=== PATIENT | male | born 1945 | race Caucasian/White ===

== ENCOUNTER → 2016-09-10 | Outpatient (REF) ==
[~2016-09-10] MED LIST: ATIVAN 2MG/ML2 MG/ML IV; BENADRYL 50M50 MG/ML IV; DEPO-TESTOS200 MG/M1 IM; DULCOLAX S10 MG/SUPP RC; FLOMAX 0.40.4 MG/CAP PO; GENTLE LAXATIVE10 MG RC; KETOROLAC30 MG/ML IV; KLOR-CON M2020 MEQ PO; LASIX 40MG TABL40 MG PO; LASIX 40MG40 MG/4 ML IV; LEVAQUIN 750MG750 M1 PO; LIORESAL 1010 MG/TAB PO; MULTIPLE VITAMI1 CAP PO; PERCOCET 325 MG1 TA3 PO; PRILOSEC 20MG20 MG PO; PRINZIDE 12.5 M1 TAB PO; PROTONIX I40 MG/VIAL IV; SENOKOT S 50 MG1 TAB PO; VITAMINC1000TA PO
== END ==
LOC: ZLAB.WCH 20:34
DX: Z01.89 Encounter for other specified special examinations (principal)

== ENCOUNTER → 2016-09-11 | Outpatient (REF) | LOC: ZLAB.WCH 10:14 | DX: Z01.89 Encounter for other specified special examinations (principal) | CPT/HCPCS: G0103 ==

== ENCOUNTER → 2016-09-19 | Outpatient (CLI) | payer MEDICARE, BC ==
[2016-09-19 15:29] LABS: BASO # 0.1 (0.0-0.2); BASO % 0.5 % (0.0-2.0); EOS # 0.4 (0.0-0.7); EOS % 3.9 % (0-4.0); GRAN # 7.3 (1.4-6.5); GRAN % 72.5 % (42.2-75.2); HEMATOCRIT 48.2 % (42.0-52.0); HEMOGLOBIN 16.4 g/dl (13.5-18.0); LYMPH # 1.4 (1.2-3.4); LYMPH % 13.7 % (20.0-51.0); MEAN CELL VOLUME 85 fl (80.0-100.0); MEAN CORPUSCULAR HEMOGLOBIN 29 pg (27.0-31.0); MEAN CORPUSCULAR HGB CONC 34 g/dl (33.0-37.0); MEAN PLATELET VOLUME 10.1 fl (7.4-10.4); MONO # 0.9 (0.1-0.6); MONO % 8.4 % (1.7-9.3); PLATELET COUNT 305 K/mm3 (130-400); RED BLOOD COUNT 5.67 M/mm3 (4.20-5.60); REDCELL DISTRIBUTION WIDTH-CV 13.5 % (11.5-14.5); WHITE BLOOD COUNT 10.1 K/mm3 (4.8-10.8)
== END ==
LOC: COL.LAB 15:03
PROVIDERS: Orthopaedic Surgery Sports Medicine
DX: Z96.652 Presence of left artificial knee joint (principal)

== ENCOUNTER → 2016-09-20 | Outpatient (REF) | LOC: ZLAB.WCH 18:11 | DX: Z01.89 Encounter for other specified special examinations (principal) ==

== ENCOUNTER 2016-10-15 19:55 | Inpatient (IN) | payer MEDICARE, BC ==
[~2016-10-15] VITALS: Ht 180.3 cm; Wt 113.7 kg
[2016-10-15 21:07] VITALS: BP 133/64; PULSE 94; TEMP 99.7
[2016-10-15] MEDS ORDERED: FLOMAX 0.40.4 MG/CAP PO (21:23)
[2016-10-15] MEDS ORDERED: PRINZIDE 12.5 M1 TAB PO (21:24)
[2016-10-15] MEDS ORDERED: LASIX 40MG TABL40 MG PO (21:24)
[2016-10-15] MEDS ORDERED: MULTIPLE VITAMI1 CAP PO (21:25)
[2016-10-15] MEDS ORDERED: VITAMINC1000TA PO (21:25)
[2016-10-15] MEDS ORDERED: DEPO-TESTOS200 MG/M1 IM (21:26)
[2016-10-15] MEDS ORDERED: PRILOSEC 20MG20 MG PO (21:27)
[2016-10-16 02:25] VITALS: BP 123/64; PULSE 93; TEMP 98.1
[2016-10-16 06:09] VITALS: BP 131/66; PULSE 87; TEMP 98.5
[2016-10-16 07:01] LABS: HEMATOCRIT 41.7 % (42.0-52.0); HEMOGLOBIN 14.3 g/dl (13.5-18.0); MEAN CELL VOLUME 86 fl (80.0-100.0); MEAN CORPUSCULAR HEMOGLOBIN 29 pg (27.0-31.0); MEAN CORPUSCULAR HGB CONC 34 g/dl (33.0-37.0); MEAN PLATELET VOLUME 10.9 fl (7.4-10.4); PLATELET COUNT 185 K/mm3 (130-400); RED BLOOD COUNT 4.88 M/mm3 (4.20-5.60)
[2016-10-16 07:09] LABS: WHITE BLOOD COUNT 22.5 K/mm3 (4.8-10.8)
[2016-10-16 07:10] LABS: ADD PATHOLOGY DIFF REVIEW NO
[2016-10-16 07:19] LABS: ADJUSTED CALCIUM 8.8 mg/dL (8.4-10.2); ALBUMIN 3.1 gm/dL (3.5-5.0); BILIRUBIN,TOTAL 1.1 mg/dL (0.0-1.0); CALCIUM 8.1 mg/dL (8.4-10.2); CREATININE, serum 0.8 mg/dL (0.66-1.25); POTASSIUM 3.3 mmol/L (3.4-5.0)
[2016-10-16 07:37] LABS: ALBUMIN 3.4 gm/dL (3.5-5.0); BILIRUBIN,TOTAL 1.2 mg/dL (0.0-1.0); TOTAL PROTEIN 6.2 gm/dL (6.4-8.2)
[2016-10-16 07:48] LABS: BILIRUBIN,DIRECT 0.5 mg/dL (0.0-0.4)
[2016-10-16 09:09] LABS: BAND 20 % (0-10); NEUTROPHILS 71 % (42.0-75.2); PLATELET ESTIMATE NORMAL (NORMAL); TOTAL CELLS COUNTED 100
[2016-10-16 09:12] VITALS: BP 132/61; PULSE 92; TEMP 98.1
[2016-10-16 13:51] VITALS: BP 146/67; PULSE 96; TEMP 98.5
[2016-10-16 14:05] LABS: PH 6 (5-8); SQUAMOUS EPITHELIAL None Seen /hpf; URINE APPEARANCE Hazy; URINE BACTERIA None Seen /hpf; URINE BILIRUBIN Negative (NEGATIVE); URINE BLOOD Negative (NEGATIVE); URINE COLOR Yellow; URINE GLUCOSE Negative (NEGATIVE); URINE KETONE 1+ (NEGATIVE); URINE WBC 0-2 /hpf
[2016-10-16 17:47] VITALS: BP 110/48; PULSE 97; TEMP 98.9
[2016-10-16 21:39] VITALS: BP 140/60; PULSE 106; TEMP 98.2
[2016-10-17 01:30] VITALS: BP 123/55; PULSE 95; TEMP 98
[2016-10-17 06:08] VITALS: BP 132/64; PULSE 104; TEMP 100.3
[2016-10-17 06:42] LABS: HEMATOCRIT 41.7 % (42.0-52.0); MEAN CELL VOLUME 87 fl (80.0-100.0); MEAN CORPUSCULAR HEMOGLOBIN 29 pg (27.0-31.0); MEAN CORPUSCULAR HGB CONC 34 g/dl (33.0-37.0); MEAN PLATELET VOLUME 10.7 fl (7.4-10.4); PLATELET COUNT 178 K/mm3 (130-400)
[2016-10-17 07:02] LABS: WHITE BLOOD COUNT 25.4 K/mm3 (4.8-10.8)
[2016-10-17 07:03] LABS: ADD PATHOLOGY DIFF REVIEW NO
[2016-10-17 07:46] LABS: BAND 22 % (0-10); NEUTROPHILS 67 % (42.0-75.2); TOTAL CELLS COUNTED 100
[2016-10-17 07:52] LABS: PLATELET ESTIMATE NORMAL (NORMAL)
[2016-10-17 09:23] VITALS: BP 125/60; PULSE 87; TEMP 97.6
[2016-10-17 10:03] LABS: CALCIUM 8.2 mg/dL (8.4-10.2); CREATININE, serum 0.87 mg/dL (0.66-1.25); POTASSIUM 3.6 mmol/L (3.4-5.0)
[2016-10-17 13:51] VITALS: BP 121/53; PULSE 85
[2016-10-17 18:03] VITALS: BP 112/51; PULSE 86
[2016-10-17 21:28] VITALS: BP 119/59; PULSE 72; TEMP 98.5
[2016-10-18 01:49] VITALS: BP 134/60; PULSE 77; TEMP 98.5
[2016-10-18 06:30] VITALS: BP 118/61; PULSE 72; TEMP 97.4
[2016-10-18 06:51] LABS: HEMATOCRIT 37.7 % (42.0-52.0); HEMOGLOBIN 12.7 g/dl (13.5-18.0); MEAN CELL VOLUME 87 fl (80.0-100.0); MEAN CORPUSCULAR HEMOGLOBIN 29 pg (27.0-31.0); MEAN CORPUSCULAR HGB CONC 34 g/dl (33.0-37.0); MEAN PLATELET VOLUME 11.7 fl (7.4-10.4); PLATELET COUNT 180 K/mm3 (130-400); RED BLOOD COUNT 4.33 M/mm3 (4.20-5.60); REDCELL DISTRIBUTION WIDTH-CV 13.7 % (11.5-14.5); WHITE BLOOD COUNT 19.5 K/mm3 (4.8-10.8)
[2016-10-18 07:43] LABS: CREATININE, serum 0.7 mg/dL (0.66-1.25)
[2016-10-18 10:00] VITALS: BP 119/66; PULSE 66; TEMP 98.9
[2016-10-18 13:05] VITALS: BP 125/60; PULSE 70; TEMP 97.9
[2016-10-18 16:55] VITALS: BP 116/56; PULSE 85; TEMP 97.9
[2016-10-18 21:13] VITALS: BP 132/66; PULSE 81; TEMP 97.3
[2016-10-19 02:42] VITALS: BP 129/68; PULSE 84; TEMP 97.5
[2016-10-19 05:50] VITALS: BP 124/57; PULSE 70; TEMP 98.5
[2016-10-19 10:13] VITALS: BP 127/70; PULSE 63; TEMP 97.9
[2016-10-19 13:25] VITALS: BP 124/60; PULSE 56; TEMP 97.8
[2016-10-19 13:44] LABS: BASO % 0.2 % (0.0-2.0); EOS # 0.4 (0.0-0.7); EOS % 3.3 % (0-4.0); GRAN % 80.9 % (42.2-75.2); HEMOGLOBIN 12.3 g/dl (13.5-18.0); LYMPH # 0.8 (1.2-3.4); LYMPH % 6.7 % (20.0-51.0); MEAN CELL VOLUME 86 fl (80.0-100.0); MEAN CORPUSCULAR HEMOGLOBIN 29 pg (27.0-31.0); MEAN CORPUSCULAR HGB CONC 34 g/dl (33.0-37.0); MONO % 7.9 % (1.7-9.3); PLATELET COUNT 209 K/mm3 (130-400); RED BLOOD COUNT 4.24 M/mm3 (4.20-5.60); REDCELL DISTRIBUTION WIDTH-CV 13.9 % (11.5-14.5); WHITE BLOOD COUNT 12.4 K/mm3 (4.8-10.8)
[2016-10-19 13:45] LABS: HEMATOCRIT 36.5 % (42.0-52.0)
[2016-10-19 13:55] LABS: CREATININE, serum 0.62 mg/dL (0.66-1.25); POTASSIUM 3.7 mmol/L (3.4-5.0)
[2016-10-19 17:33] VITALS: BP 134/65; PULSE 64; TEMP 98.9
[2016-10-19 21:45] VITALS: BP 147/73; PULSE 71; TEMP 98.3
[2016-10-20 02:18] VITALS: BP 164/81; PULSE 65; TEMP 99.2
[2016-10-20 04:18] VITALS: BP 143/71; PULSE 77; TEMP 98.9
[2016-10-20 07:06] LABS: HEMATOCRIT 35.2 % (42.0-52.0); HEMOGLOBIN 11.7 g/dl (13.5-18.0); MEAN CELL VOLUME 86 fl (80.0-100.0); MEAN CORPUSCULAR HEMOGLOBIN 29 pg (27.0-31.0); MEAN CORPUSCULAR HGB CONC 33 g/dl (33.0-37.0); MEAN PLATELET VOLUME 11.5 fl (7.4-10.4); PLATELET COUNT 217 K/mm3 (130-400); RED BLOOD COUNT 4.08 M/mm3 (4.20-5.60); REDCELL DISTRIBUTION WIDTH-CV 13.9 % (11.5-14.5); WHITE BLOOD COUNT 11.5 K/mm3 (4.8-10.8)
[2016-10-20 07:07] LABS: ADD PATHOLOGY DIFF REVIEW NO
[2016-10-20 07:25] LABS: ALBUMIN 2.6 gm/dL (3.5-5.0); BILIRUBIN,TOTAL 1.1 mg/dL (0.0-1.0); CALCIUM 7.9 mg/dL (8.4-10.2); CREATININE, serum 0.66 mg/dL (0.66-1.25); POTASSIUM 3.6 mmol/L (3.4-5.0); TOTAL PROTEIN 5.5 gm/dL (6.4-8.2)
[2016-10-20 09:08] LABS: BAND 14 % (0-10); NEUTROPHILS 72 % (42.0-75.2); PLATELET ESTIMATE NORMAL (NORMAL); TOTAL CELLS COUNTED 100
[2016-10-20 10:03] VITALS: BP 125/58; PULSE 70; TEMP 97.9
[2016-10-20 14:37] VITALS: BP 124/68; PULSE 60; TEMP 98.3
[2016-10-20 18:30] VITALS: BP 133/64; PULSE 50; TEMP 98.1
[2016-10-20 21:54] VITALS: BP 136/63; PULSE 61; TEMP 99
[2016-10-21 05:44] VITALS: BP 149/75; PULSE 76; TEMP 97.9
[2016-10-21 10:28] VITALS: BP 146/69; PULSE 65; TEMP 98.7
[2016-10-21 12:58] VITALS: BP 140/63; PULSE 63; TEMP 97.5
[2016-10-21] MEDS ORDERED: DULCOLAX S10 MG/SUPP RC (14:57)
[2016-10-21] MEDS ORDERED: LEVAQUIN 750MG750 M1 PO (14:57)
[2016-10-21] MEDS ORDERED: PERCOCET 325 MG1 TA3 PO ×2 (14:59→15:11)
== END 2016-10-21 16:23 | disposition home or self-care (01) | DRG 438 ==
LOC: SURG 19:55
PROVIDERS: Family Medicine; Internal Medicine Gastroenterology; Nurse Practitioner Family; Physician Assistant; Surgery
DX: K85.90 Acute pancreatitis without necrosis or infection, unspecified (principal); J18.9 Pneumonia, unspecified organism; E87.1 Hypo-osmolality and hyponatremia; E44.0 Moderate protein-calorie malnutrition; I10 Essential (primary) hypertension; G47.33 Obstructive sleep apnea (adult) (pediatric); K86.1 Other chronic pancreatitis; R39.11 Hesitancy of micturition; K57.10 Diverticulosis of small intestine without perforation or abscess without bleeding; E87.6 Hypokalemia
CPT/HCPCS: 99222-AI; 99232-AI; 99233-AI; C9113; J1170; J2270; J7030; Q9967

== ENCOUNTER → 2016-10-16 | Outpatient (REF) | LOC: ZLAB.WCH 09:41 | DX: Z01.89 Encounter for other specified special examinations (principal) ==

== ENCOUNTER → 2016-10-29 | Outpatient (REF) | LOC: ZLAB.WCH 18:19 | DX: Z01.89 Encounter for other specified special examinations (principal) ==

== ENCOUNTER 2016-12-25 11:17 | Outpatient (CLI) | payer MEDICARE, BC ==
[~2016-12-25] VITALS: Ht 177.8 cm; Wt 111.3 kg
[~2016-12-25 11:17] MED LIST changes: -ATIVAN 2MG/ML2 MG/ML IV; -BENADRYL 50M50 MG/ML IV; -GENTLE LAXATIVE10 MG RC; -KETOROLAC30 MG/ML IV; -KLOR-CON M2020 MEQ PO; -LASIX 40MG40 MG/4 ML IV; -LIORESAL 1010 MG/TAB PO; -PROTONIX I40 MG/VIAL IV; -SENOKOT S 50 MG1 TAB PO
[2016-12-25 11:27] VITALS: BP 153/80; PULSE 63; TEMP 98.3
[2016-12-25] MEDS ORDERED: LASIX 40MG40 MG/4 ML IV (12:02)
[2016-12-25] MEDS ORDERED: PROTONIX I40 MG/VIAL IV (12:03)
[2016-12-25] MEDS ORDERED: KLOR-CON M2020 MEQ PO (12:03)
[2016-12-25] MEDS ORDERED: SENOKOT S 50 MG1 TAB PO (12:04)
[2016-12-25] MEDS ORDERED: KETOROLAC30 MG/ML IV (12:04)
[2016-12-25] MEDS ORDERED: GENTLE LAXATIVE10 MG RC (12:06)
[2016-12-25] MEDS ORDERED: LIORESAL 1010 MG/TAB PO (12:07)
[2016-12-25] MEDS ORDERED: BENADRYL 50M50 MG/ML IV (12:09)
[2016-12-25] MEDS ORDERED: ATIVAN 2MG/ML2 MG/ML IV (12:10)
== END 2016-12-25 13:28 | disposition home or self-care (01) ==
LOC: EUO 11:17
DX: K85.90 Acute pancreatitis without necrosis or infection, unspecified (principal); K56.7 Ileus, unspecified; R63.0 Anorexia; Z95.828 Presence of other vascular implants and grafts
CPT/HCPCS: C1751

== ENCOUNTER → 2016-12-26 | Outpatient (REF) ==
[~2016-12-26] MED LIST changes: +ATIVAN 2MG/ML2 MG/ML IV; +BENADRYL 50M50 MG/ML IV; +GENTLE LAXATIVE10 MG RC; +KETOROLAC30 MG/ML IV; +KLOR-CON M2020 MEQ PO; +LASIX 40MG40 MG/4 ML IV; +LIORESAL 1010 MG/TAB PO; +PROTONIX I40 MG/VIAL IV; +SENOKOT S 50 MG1 TAB PO
== END ==
LOC: ZLAB.WCH 08:51
DX: Z02.89 Encounter for other administrative examinations (principal)

== ENCOUNTER → 2017-01-08 | Outpatient (REF) | LOC: ZAIV 06:10 | DX: Z02.89 Encounter for other administrative examinations (principal) ==

== ENCOUNTER → 2017-03-04 | Outpatient (REF) | LOC: ZLAB.WCH 15:00 | DX: Z01.89 Encounter for other specified special examinations (principal) ==

== ENCOUNTER → 2017-04-15 | Outpatient (REF) | LOC: ZLAB.WCH 18:07 | DX: Z01.89 Encounter for other specified special examinations (principal) ==

== ENCOUNTER → 2017-05-03 | Outpatient (CLI) | payer MEDICARE, BC | LOC: COL.VAS 12:21 | DX: I26.99 Other pulmonary embolism without acute cor pulmonale (principal); R60.0 Localized edema ==

== ENCOUNTER → 2017-06-27 | Outpatient (REF) | LOC: ZLAB.WCH 18:06 | DX: Z01.89 Encounter for other specified special examinations (principal) ==

== ENCOUNTER → 2017-07-12 | Outpatient (CLI) | payer MEDICARE, BC | LOC: COL.LAB 10:43 | DX: Z01.812 Encounter for preprocedural laboratory examination (principal); M25.862 Other specified joint disorders, left knee ==

== ENCOUNTER → 2017-10-01 | Outpatient (REF) ==
[2017-10-01 14:52] LABS: IRON,SERUM 81 ug/dL (35-150)
[2017-10-01 15:01] LABS: TOTAL IRON BINDING CAPACITY 383 ug/dL (261-462)
[2017-10-01 15:30] LABS: FERRITIN 14 ng/mL (18-464)
== END ==
LOC: ZLAB.WCH 14:28
PROVIDERS: Nurse Practitioner Family
DX: Z01.89 Encounter for other specified special examinations (principal)

== ENCOUNTER → 2018-01-23 | Outpatient (REF) ==
[2018-01-23 17:07] LABS: PSA-TOTAL 0.53 ng/mL (0-4)
[2018-01-23 17:11] LABS: THYROID STIMULATING HORMONE 1.33 uIU/mL (0.465-4.680)
== END ==
LOC: ZLAB.WCH 16:25
PROVIDERS: Internal Medicine
DX: Z01.89 Encounter for other specified special examinations (principal)
CPT/HCPCS: G0103

== ENCOUNTER → 2018-02-11 | Outpatient (CLI) | payer MEDICARE, BC | LOC: COL.RAD 11:04 | DX: Z01.812 Encounter for preprocedural laboratory examination (principal) ==

== ENCOUNTER → 2023-06-06 | Outpatient (CLI) | payer MEDICARE, BC ==
[~2023-06-06] MED LIST changes: +Iohexol 300 - 10 ML VIAL IV ONE; +Triamcinolone 40 MG/ML 1 ML VIAL IJ ONE
== END ==
LOC: COL.RAD 08:40
DX: M25.551 Pain in right hip (principal)
CPT/HCPCS: J0665; J3301; Q9967

== ENCOUNTER → 2023-09-11 | Outpatient (CLI) | payer MEDICARE, BC ==
[~2023-09-11] MED LIST changes: +Albuterol 0.083% Neb Soln 2.5 MG/3 ML UD IH ONE; -Iohexol 300 - 10 ML VIAL IV ONE; +Methacholine Vial A (Clear Label Base-Cntrl) IH ONE; +Methacholine Vial B (Red Label) 0.0625 MG/ML 3 ML VIAL.NEB IH ONE; +Methacholine Vial C (Orange Label) 0.25 MG/ML 3 ML VIAL.NEB IH ONE; +Methacholine Vial D (Yellow Label) 1 MG/ML 3 ML VIAL.NEB IH ONE; +Methacholine Vial E (Green Label) 4 MG/ML 3 ML VIAL.NEB IH ONE; +Methacholine Vial F (Blue Label) 16 MG/ML 3 ML VIAL.NEB IH ONE; -Triamcinolone 40 MG/ML 1 ML VIAL IJ ONE
== END ==
LOC: COL.CARD 10:08
DX: R06.02 Shortness of breath (principal)
CPT/HCPCS: J7674